=== PATIENT | male | born 2000 | race Caucasian/White ===

== ENCOUNTER 2023-01-01 18:28 | Emergency (ER) | payer MEDICAID | END 2023-01-01 19:47 | disposition home or self-care (01) | LOC: JP.ED 18:28 | DX: S60.420A Blister (nonthermal) of right index finger, initial encounter (principal); L08.9 Local infection of the skin and subcutaneous tissue, unspecified; F17.210 Nicotine dependence, cigarettes, uncomplicated; Z91.048 Other nonmedicinal substance allergy status; Z88.0 Allergy status to penicillin | CPT/HCPCS: 99282 ==